=== PATIENT | female | born 1970 | race Caucasian/White ===

== ENCOUNTER 2020-01-19 09:32 | Emergency (ER) | payer OTHER ==
[~2020-01-19] VITALS: Ht 162.5 cm; Wt 78.5 kg
[2020-01-19] MEDS ORDERED: PREDNISONE50 MG PO (12:48)
[2020-01-19] MEDS ORDERED: CYCLOBENZAPRINE10 MG PO (12:48)
[2020-01-19] MEDS ORDERED: NAPROSYN500 MG PO (12:48)
== END 2020-01-19 12:52 | disposition home or self-care (01) ==
LOC: ED 09:32
DX: M54.16 Radiculopathy, lumbar region (principal); M54.12 Radiculopathy, cervical region; G89.29 Other chronic pain